=== PATIENT | female | born 1985 | race Hispanic/Latino ===

== ENCOUNTER 2018-07-29 06:45 | Outpatient (CLI) | payer OTHER ==
--- NOTE | 2018-07-29 09:15 | ULT ---
OB ULTRASOUND COMPLETE: Date: 07/29/18 CLINICAL HISTORY: Evaluation of anatomy. FINDINGS: There is a single, live intrauterine gestation, which by sonographic evaluation corresponds to 21 wee ks/3 days gestation, with BPD correlating to 21 weeks/1 day, head circumference 21 weeks/4 days, abdo pascual circumference 21 weeks/6 days, and femur length 21 weeks/0 days. cardiac activity is docu mented at 147 beats/minute. Amniotic fluid volume is subjectively normal. Placenta is primarily locat ed in an anterior location and the fetus is demonstrated in a breech lie on the provided views. Evalu ation of anatomy reveals no significant pathology of the imaged calvarium, spine, four chamber heart, gastric bubble, kidneys, urinary bladder, or cord insertion site. OK is calculated at 12.2 cm . On the basis of sonographic imaging, estimated date of delivery is 12/06/2018. Estimated weight is 423 gm. Cervical length is documented at 6.1 cm. IMPRESSION: Single, live intrauterine gestation, as discussed above. As clinically necessary, continued imaging follow-up may be obtained. POS: DESTINY
== END 2018-07-29 06:46 | disposition home or self-care (01) ==
LOC: BICULT 06:45
PROVIDERS: ATTEND Family Medicine
DX: O09.92 Supervision of high risk pregnancy, unspecified, second trimester (principal); Z3A.21 21 weeks gestation of pregnancy
CPT/HCPCS: 76805

== ENCOUNTER 2018-09-23 11:35 | Day surgery (SDC) | payer OTHER ==
[2018-09-23 11:58] VITALS: BMI 26.5
[2018-09-23] MEDS ORDERED: Ondansetron HCl/PF 4 MG in Sodium Chloride 0.9% 50 ML IVPB PRN (12:27)
[2018-09-23] MEDS ORDERED: Ondansetron PF 4 MG/2 ML Vial ONE (12:27)
[2018-09-23] MEDS ORDERED: Lactated Ringer's 1,000 ML IV SCH (12:30)
--- NOTE | 2018-09-23 15:19 | PDOC.LDHP ---
Labor and Delivery H&P Chief complaint: other (N/V) HPI: 32 y/o at 30w0d, patient of Dr. South, presents with N/V since last night. Patient reports that today she became dizzy and had some left sided pain so she decided to come in. Denies VB, LOF, ctx or decreased FM. ROS neg for HEENT, CV, pulm, GI, , neuro, psych, skin, musculoskeletal, or constitutional symptoms other than mentioned above. OB History Details: 1 prior term Current complications: none Past Medical History: None Current medications: none Previous surgical history: none Allergies/Adverse Reactions: Allergies Allergy/AdvReac Type Severity Reaction Status Date / Time No Known Allergies Allergy Verified 09/23/18 12:02 Social history: none - Physical Exam Vital signs reviewed and normal: yes General: NAD, resting Lungs: nonlabored breathing Abdomen: gravid Extremeties: no edema FHT: category 1 (130s, mod variability, + accels, no decels) [facility] contractions every: occasional - Assessment 32 y/o at 30w0d with gastroenteritis. Patient reports symptoms have resolved with IV fluids and zofran. status reassuring with reactive NST. - Plan -: D/c home with precautions. Advised to keep all appointments and stay well hydrated. Given Rx for Zofran.
== END 2018-09-23 14:13 | disposition home health service, planned readmission (86) ==
LOC: L&D/OP 11:35
PROVIDERS: ATTEND Family Medicine
DX: O99.613 Diseases of the digestive system complicating pregnancy, third trimester (principal); K52.9 Noninfective gastroenteritis and colitis, unspecified; Z3A.30 30 weeks gestation of pregnancy
CPT/HCPCS: 96360; 96361; 96375; 99282; J2405

== ENCOUNTER 2018-11-19 17:34 | Inpatient (IN) | payer OTHER ==
[2018-11-19 18:27] VITALS: BMI 30.2
[2018-11-19 19:06] LABS: Amnisure Internal Control QC ACCEPTABLE (ACCEPTABLE); Amnisure Test No Membranes Rupture (No Rupture)
--- NOTE | 2018-11-19 19:09 | PDOC.LDHP ---
Labor and Delivery H&P Chief complaint: contractions, loss of fluid HPI: 32 y/o at 38w1d, patient of Dr. South, presents with regular ctx since 1200 and ?LOF. Denies VB or decreased FM. Has mild WESLEY. No vision changes or RUQ pain. Has history of CHTN prior to and was on medication but was stopped at the beginning of . ROS neg for HEENT, cv, pulm, gi, gu, neuro, psych, skin, musculoskeletal or constitutional sx other than mentioned above. OB History Details: 1 prior Current complications: hypertension Past Medical History: CHTN Current medications: pre- vitamins Previous surgical history: none Allergies/Adverse Reactions: Allergies Allergy/AdvReac Type Severity Reaction Status Date / Time No Known Allergies Allergy Verified 11/19/18 18:27 Social history: none - Physical Exam Abnormal vital signs: mild range BPs General: NAD, resting Lungs: nonlabored breathing Abdomen: gravid Extremeties: no edema FHT: category 1 (130s, mod variability, + accels, no decels) [place] contractions every: q 3-4 mins - Vaginal Exam cm dilated: 0 Effacement: 0% Station: -3 - Assessment at 38w1d with mild range BPs at term and regular ctx. - Plan Plan: observation in L&D -: Continue to monitor BPs Repeat SVE as needed Dr. South notified.
[2018-11-19 19:34] LABS: #Eosinphils 0.1 thou/uL (0.0-0.7); #Lymphocytes 1.6 thou/uL (1.20-3.40); #Monocytes 0.2 thou/uL (0.11-0.59); #Neutrophils 6.5 thou/uL (1.40-6.50); %Basophils 0.1 % (0.0-1.0); %Eosinophils 1.2 % (0.0-10.0); %Lymphocytes 19.4 % (21.0-51.0); %Neutrophils 77.3 % (42.0-75.0); Hemoglobin 12.3 g/dL (12.0-16.0); Mean Corpuscular HGB CONC 32.7 g/dL (32.0-36.0); Mean Corpuscular Hemoglobin 29.9 pg (27.0-31.0); Mean Corpuscular Volume 91.4 fL (78.0-98.0); Mean Platelet Volume 7.4 fL (7.4-10.4); Platelet Count 308 thou/uL (130-400); White Blood Cell (WBC) Count 8.4 thou/uL (4.8-10.8)
[2018-11-19 19:54] LABS: ALT (SGPT) 29 U/L (8-55); AST (SGOT) 34 U/L (5-34); Albumin 3.5 g/dL (3.5-5.0); Alkaline Phosphatase 237 U/L (40-150); Anion Gap 15 mmol/L (10-20); BUN (Urea Nitrogen) 15 mg/dL (7.0-18.7); Bilirubin, Total 0.4 mg/dL (0.2-1.2); Calc. Creatinine Clearance 126 mL/min (70-130); Carbon Dioxide 16 mmol/L (22-29); Chloride 107 mmol/L (98-107); Estimated GFR-MDRD 85; Globulin 3.3 g/dL (2.4-3.5); Glucose 93 mg/dL (70-105); Potassium 3.8 mmol/L (3.5-5.1); Protein, Total 6.8 g/dL (6.0-8.3); Sodium 134 mmol/L (136-145)
[2018-11-19 20:58] LABS: Creatinine, Urine 42.14 mg/dL (47-110); Protein, Urine Random Quant Less than 10 mg/dL (1-14)
[2018-11-19] MEDS ORDERED: Promethazine HCl 25 MG/ML VIAL IM PRN (21:03)
[2018-11-19] MEDS ORDERED: Ondansetron PF 4 MG/2 ML Vial IVP PRN (21:03)
[2018-11-19] MEDS ORDERED: Acetaminophen 500 MG TAB PO PRN (21:03)
[2018-11-19] MEDS ORDERED: Zolpidem Tartrate 5 MG TAB PO PRN (21:10)
[2018-11-19] MEDS: Butorphanol Tartrate 1 MG/ML VIAL SLOW IVP PRN (21:39)
[2018-11-20] MEDS ORDERED: Diphenoxylate HCl/Atropine Tablet PO PRN (07:47)
[2018-11-20] MEDS ORDERED: Carboprost 250 MCG/ML AMP IM PRN (07:47)
[2018-11-20] MEDS ORDERED: Lidocaine 1% (PF) 30 ML VIAL SC PRN (07:47)
[2018-11-20] MEDS ORDERED: Methylergonovine 0.2 MG/ML VIAL IM PRN (07:47)
[2018-11-20] MEDS ORDERED: HYDROcodone/Acetaminophen 5/325 mg Tablet PO PRN ×2 (07:47→22:57)
[2018-11-20] MEDS ORDERED: Ibuprofen 800 MG TAB PO PRN (07:47)
[2018-11-20] MEDS ORDERED: Misoprostol 200 MCG TAB PR PRN (07:47)
[2018-11-20] MEDS ORDERED: NS / Oxytocin 40 units/1000ml 1,000 ML IV PRN (07:47)
[2018-11-20] MEDS ORDERED: Acetaminophen 500 MG TAB PO PRN (07:52)
[2018-11-20] MEDS ORDERED: NS w/ Oxytocin 10 units 500 ML IV SCH (08:00)
[2018-11-20] MEDS: Misoprostol 100 MCG TAB PO SCH ×2 (08:00→12:00)
[2018-11-20 08:42] LABS: Hemoglobin 12.7 g/dL (12.0-16.0); Mean Corpuscular HGB CONC 32.8 g/dL (32.0-36.0); Mean Corpuscular Hemoglobin 30.1 pg (27.0-31.0); Mean Corpuscular Volume 91.6 fL (78.0-98.0); Platelet Count 323 thou/uL (130-400); RBC Distribution Width 14.2 % (11.5-14.5); Red Blood Cell (RBC) Count 4.24 mill/uL (4.20-5.40); White Blood Cell (WBC) Count 7.8 thou/uL (4.8-10.8)
[2018-11-20 09:23] LABS: Syphilis Antibody Nonreactive (Nonreactive); Syphilis Antibody Index 0.03 S/CO (<1.00 Non-Reactive)
[2018-11-20 09:24] LABS: HBSAg Index 0.27 S/CO (0-0.99); Hep B Surf Ag Non-Reactive S/CO (NonReactive)
[2018-11-20] MEDS ORDERED: Bupivacaine HCl 0.25%/Epi 0.0005/PF 10 ML VIAL FS ONE (11:11)
[2018-11-20] MEDS ORDERED: ePHEDrine/0.9% NaCl/PF SYRINGE 50 mg/10 ml ONE (11:11)
[2018-11-20] MEDS: Lactated Ringer's 1,000 ML IV SCH ×2 (16:00→18:30)
[2018-11-20] MEDS: Butorphanol Tartrate 1 MG/ML VIAL SLOW IVP PRN (16:20)
[2018-11-20] MEDS: NS w/ Oxytocin 10 units 500 ML IV SCH ×2 (16:47→18:20)
[2018-11-20] MEDS ORDERED: Fentanyl 4 mcg/Bup 0.1% Cadd 100 ML ONE (17:15)
[2018-11-20] MEDS ORDERED: Lidocaine 1.5% w/Epi 1:200K 30 ML VIAL (Epid Use) ONE (17:39)
[2018-11-20] MEDS ORDERED: Promethazine HCl 25 MG/ML VIAL IM PRN (17:57)
[2018-11-20] MEDS ORDERED: Naloxone HCl 0.4 mg/ml Vial IVP PRN ×2 (17:57)
[2018-11-20] MEDS ORDERED: diphenhydrAMINE 50 MG/ML VIAL IVP PRN (17:57)
[2018-11-20] MEDS ORDERED: ePHEDrine/0.9% NaCl/PF SYRINGE 50 mg/10 ml SLOW IVP PRN (17:57)
[2018-11-20] MEDS ORDERED: Hydrocerin (Eucerin) Cream 120 gm Jar TOP PRN (17:57)
[2018-11-20] MEDS ORDERED: Lactated Ringer's 500 ML IV PRN (17:57)
[2018-11-20] MEDS ORDERED: Ondansetron PF 4 MG/2 ML Vial IVP PRN ×2 (17:57→22:57)
[2018-11-20] MEDS ORDERED: Acetaminophen 325 MG TAB PO PRN (17:57)
[2018-11-20] MEDS ORDERED: Fentanyl 4 mcg/Bupivacaine 0.1% Cassette 100 ML EPIDURAL SCH (18:00)
[2018-11-20] MEDS ORDERED: Communication Order-Pharmacy FS SCH (18:00)
[2018-11-20] MEDS ORDERED: Lidocaine 1% (PF) 30 ML VIAL ONE (20:18)
[2018-11-20] MEDS ORDERED: NS / Oxytocin 40 units/1000ml 1,000 ML IV SCH (22:57)
[2018-11-20] MEDS ORDERED: diphenhydrAMINE 25 MG CAP PO PRN (22:57)
[2018-11-20] MEDS ORDERED: Lanolin Ointment 7 GM TUBE TOP PRN (22:57)
[2018-11-20] MEDS ORDERED: Milk Of Magnesia 30 ML UDCUP PO PRN (22:57)
[2018-11-20] MEDS ORDERED: Benzocaine/Menthol 20-0.5% 60 ML CAN TOP PRN (22:57)
[2018-11-20] MEDS ORDERED: cloNIDine 0.1 MG TAB PO PRN (22:57)
[2018-11-20] MEDS ORDERED: Preparation H Ointment 28 GM TUBE PR PRN (22:57)
[2018-11-20] MEDS ORDERED: Bisacodyl 10 MG SUPP PR PRN (22:57)
[2018-11-20] MEDS ORDERED: Docusate Calcium (SURFAK) 240 MG CAP PO SCH (23:45)
[2018-11-21] MEDS: Ibuprofen 800 MG TAB PO SCH ×3 (00:39→17:10)
[2018-11-21] MEDS: HYDROcodone/Acetaminophen 5/325 mg Tablet PO PRN (04:18)
[2018-11-21 05:59] LABS: Hemoglobin 11.9 g/dL (12.0-16.0); Mean Corpuscular HGB CONC 33.3 g/dL (32.0-36.0); Mean Platelet Volume 7.2 fL (7.4-10.4); Platelet Count 252 thou/uL (130-400); RBC Distribution Width 14.2 % (11.5-14.5); Red Blood Cell (RBC) Count 3.85 mill/uL (4.20-5.40); White Blood Cell (WBC) Count 9.2 thou/uL (4.8-10.8)
[2018-11-21] MEDS: Prenatal Vitamin 1 TAB PO SCH (08:28)
[2018-11-21] MEDS: Docusate Calcium (SURFAK) 240 MG CAP PO SCH ×2 (08:45→21:12)
[2018-11-21] MEDS: Ferrous Sulfate 325 MG TAB PO SCH ×2 (08:45→18:03)
[2018-11-22] MEDS: HYDROcodone/Acetaminophen 5/325 mg Tablet PO PRN ×2 (01:23→11:39)
[2018-11-22] MEDS: Ibuprofen 800 MG TAB PO SCH ×2 (01:24→10:02)
[2018-11-22 08:53] VITALS: BP 132/79; TEMP 97.6
[2018-11-22] MEDS: Ferrous Sulfate 325 MG TAB PO SCH (09:56)
[2018-11-22] MEDS: Prenatal Vitamin 1 TAB PO SCH (10:02)
[2018-11-22] MEDS: Docusate Calcium (SURFAK) 240 MG CAP PO SCH (14:26)
== END 2018-11-22 15:25 | disposition home or self-care (01) | DRG 807 ==
LOC: L&D/OP 17:34 → L&D 21:39 → OBSVTOIN 11-20 07:47 → 3SW 11-20 23:20
PROVIDERS: ADMIT Family Medicine; ATTEND Family Medicine
PROC: 10E0XZZ Delivery of Products of Conception, External Approach (ICD-10-PCS; principal; 2018-11-20)
PROC: 3E033VJ Introduction of Other Hormone into Peripheral Vein, Percutaneous Approach (ICD-10-PCS; 2018-11-20)
PROC: 3E0P7VZ Introduction of Hormone into Female Reproductive, Via Natural or Artificial Opening (ICD-10-PCS; 2018-11-20)
PROC: 0UQMXZZ Repair Vulva, External Approach (ICD-10-PCS; 2018-11-20)
DX: O13.4 Gestational [pregnancy-induced] hypertension without significant proteinuria, complicating childbirth (principal); Z37.0 Single live birth; Z3A.38 38 weeks gestation of pregnancy; O71.82 Other specified trauma to perineum and vulva; O77.0 Labor and delivery complicated by meconium in amniotic fluid
CPT/HCPCS: 36415; 51702; 80053; 82570; 84112; 84156; 85025; 85027; 86780; 86850; 86900; 86901; 87340; 88307; 99285; J0595; J2001

== ENCOUNTER 2019-07-13 16:07 | Emergency (ER) | payer OTHER ==
[2019-07-13] MEDS ORDERED: Lorazepam 2 MG/ML VIAL ONE (17:27)
== END 2019-07-13 18:30 | disposition home or self-care (01) ==
LOC: ERS 16:07
DX: F41.1 Generalized anxiety disorder (principal); I10 Essential (primary) hypertension; F32.9 Major depressive disorder, single episode, unspecified; Z79.899 Other long term (current) drug therapy
CPT/HCPCS: 96374; J2060

== ENCOUNTER 2021-02-27 07:46 | Emergency (ER) | payer OTHER, SELFPAY ==
[2021-02-27] MEDS ORDERED: hydrOXYzine Pamoate 25 mg Capsule ONE (08:25)
[2021-02-27 08:31] LABS: #Basophils 0.1 thou/uL (0.0-0.2); #Lymphocytes 1.7 thou/uL (1.20-3.40); #Monocytes 0.5 thou/uL (0.11-0.59); #Neutrophils 11.1 thou/uL (1.40-6.50); %Basophils 0.4 % (0.0-1.0); %Eosinophils 0.2 % (0.0-10.0); %Lymphocytes 12.5 % (21.0-51.0); %Monocytes 3.7 % (0.0-10.0); %Neutrophils 83.2 % (42.0-75.0); Hemoglobin 13.6 g/dL (12.0-16.0); Mean Corpuscular Hemoglobin 30.5 pg (27.0-31.0); Mean Corpuscular Volume 92.6 fL (78.0-98.0); Mean Platelet Volume 7.6 fL (7.4-10.4); Platelet Count 434 thou/uL (130-400); RBC Distribution Width 12.2 % (11.5-14.5); Red Blood Cell (RBC) Count 4.45 mill/uL (4.20-5.40); White Blood Cell (WBC) Count 13.3 thou/uL (4.8-10.8)
[2021-02-27 08:45] LABS: Bacteria/HPF None Seen HPF (None Seen); Bilirubin Negative (Negative); Blood, Urine 1+ (Negative); Clarity Clear (Clear); Glucose, Urine (Dipstick) Normal (Negative); Ketone, Urine 20 mg/dL (Negative); Leukocyte Negative Leu/uL (Negative); Nitrite Negative (Negative); Protein, Urine (Dipstick) 10 mg/dL (Neg-Trace); Specific Gravity, Urine 1.009 (1.002-1.036); Squamous Epithelial 0-3 HPF (0-3); Urobilinogen Normal mg/dL (Less than 2); WBC/HPF 0-3 HPF (0-3)
[2021-02-27 08:46] LABS: Pregnancy Test - Urine (BHCG) Negative (Negative); Pregu Control Background? CLEAR/WHITE (CLR/WHITE); Pregu Control Bar Appear? YES (CONTROL BAR); Specific Gravity 1.009 (1.002-1.036)
[2021-02-27 08:52] LABS: ALT (SGPT) 22 U/L (8-55); AST (SGOT) 33 U/L (5-34); Albumin 4.7 g/dL (3.5-5.0); Alkaline Phosphatase 60 U/L (40-110); Anion Gap 20 mmol/L (10-20); BUN (Urea Nitrogen) 11 mg/dL (7.0-18.7); Bilirubin, Total 0.5 mg/dL (0.2-1.2); Calc. Creatinine Clearance 0 mL/min (70-130); Calcium 9.3 mg/dL (7.8-10.44); Carbon Dioxide 20 mmol/L (22-29); Chloride 102 mmol/L (98-107); Globulin 3.4 g/dL (2.4-3.5); Glucose 98 mg/dL (70-105); Magnesium 1.4 mg/dL (1.6-2.6); Potassium 3.5 mmol/L (3.5-5.1); Protein, Total 8.1 g/dL (6.0-8.3); Sodium 138 mmol/L (136-145)
== END 2021-02-27 09:51 | disposition home or self-care (01) ==
LOC: ERS 07:46
DX: F41.9 Anxiety disorder, unspecified (principal); E83.42 Hypomagnesemia; I10 Essential (primary) hypertension; R06.00 Dyspnea, unspecified; Z79.899 Other long term (current) drug therapy
CPT/HCPCS: 71045; 80053; 81003; 81015; 81025; 83735; 84484; 85025; 93005; Q0177